=== PATIENT | male | born 1980 | race Caucasian/White ===

== ENCOUNTER 2017-05-27 20:29 | Outpatient (CLI) | payer OTHER | END 2017-05-27 20:30 | disposition critical access hospital (66) | LOC: EMS 20:29 | PROVIDERS: ATTEND Surgery | DX: R55 Syncope and collapse (principal); R11.2 Nausea with vomiting, unspecified | CPT/HCPCS: A0425; A0429 ==

== ENCOUNTER 2017-05-27 20:48 | Emergency (ER) | payer OTHER ==
[2017-05-27] MEDS ORDERED: SODIUM CHLORIDE 0.9% 1,000 ML IV ONE (21:07)
[2017-05-27 21:19] LABS: BASOPHILS % (AUTO) 0.1 %; EOSINOPHILS # (AUTO) 0.1 10^3/uL (0.0-0.7); EOSINOPHILS % (AUTO) 0.7 %; HCT - HEMATOCRIT 45.1 % (42.0-52.0); LYMPHOCYTES # (AUTO) 1.1 10^3/uL (1.5-3.5); LYMPHOCYTES % (AUTO) 12.1 %; MEAN CORPUSCULAR HEMOGLOBIN 28.9 pg (27.0-31.0); MEAN CORPUSCULAR HGB CONC 33.2 g/dL (32.0-36.0); MEAN CORPUSCULAR VOLUME 87.2 fL (80.0-94.0); MEAN PLATELET VOLUME 7.1 fL (7.4-11.4); MONOCYTES # (AUTO) 0.5 10^3/uL (0.0-1.0); MONOCYTES % (AUTO) 5.9 %; NEUTROPHILS # (AUTO) 7.2 10^3/uL (1.5-6.6); NEUTROPHILS % (AUTO) 81.2 %; RED BLOOD COUNT 5.17 10^6/uL (4.70-6.10); RED CELL DISTRIBUTION WIDTH 12.4 % (12.0-15.0); UNCORRECTED WHITE BLOOD COUNT 8.8 x10^3/uL; WHITE BLOOD COUNT 8.8 x10^3/uL (4.8-10.8)
--- NOTE | 2017-05-27 21:27 | ED Physician Documentation ---
History of Present Illness - Stated complaint Stated Complaint: SYNCOPE - Chief complaint Chief Complaint: Neuro - History obtained from History obtained from: Patient (pt arrived by EMS after it was reported that he passed out at home. pt staes that he was not feeling well and started to feel like he was going to throw up and when he went into the bathroom he was throwing up and he passed out. it was witnessed by family. family (at bedside state) that he was out for about 15 seconds and had shaking as he was waking up. no reports of hitting his head. he staes that the first thing he remembers is his family around him. did not urinate on himself and did not bite his mouth. ststes that he feels OK now. denied chest pain or shortenss of breath prior to the event.) Review of Systems Constitutional: denies: Fever, Chills Nose: denies: Rhinorrhea / runny nose, Sinus pressure / pain Throat: denies: Oral lesions / sores, Sore throat Cardiac: denies: Chest pain / pressure, Palpitations Respiratory: denies: Dyspnea, Cough, Hemoptysis, Wheezing GI: reports: Nausea, Vomiting. denies: Abdominal Pain, Constipation, Diarrhea : denies: Dysuria, Frequency Skin: denies: Rash, Lesions, Laceration (s) Musculoskeletal: denies: Neck pain, Back pain, Extremity pain Neurologic: reports: Syncope, LOC. denies: Generalized weakness, Focal weakness , Numbness, Seizure, Confused, Altered mental status, Headache, Head injury PD PAST MEDICAL HISTORY - Past Medical History Cardiovascular: Hypertension Neuro: Fainting - Past Surgical History Past Surgical History: Yes - Present Medications Home Medications: Ambulatory Orders Medication Instructions Recorded Confirmed No Known Home Medications [No 05/27/17 05/27/17 Known Home Medications] - Allergies Allergies/Adverse Reactions: Allergies Allergy/AdvReac Type Severity Reaction Status Date / Time No Known Drug Allergies Allergy Verified 05/27/17 20:52 - Social History Does the pt smoke?: No Smoking Status: Never smoker Does the pt drink ETOH?: Yes ETOH Use: Beer Does the pt have substance abuse?: No - Immunizations Immunizations are current?: Yes PD ED PE NORMAL - Vitals Vital signs reviewed: Yes - General General: Alert and oriented X 3, No acute distress, Well developed/nourished - HEENT HEENT: Atraumatic, PERRL, EOMI, Moist mucous membranes - Cardiac Cardiac: RRR, No murmur - Respiratory Respiratory: Clear bilaterally - Abdomen Abdomen: Soft, Non tender, Non distended - Derm Derm: Normal color, Warm and dry, No rash - Extremities Extremities: No deformity, No edema - Neuro Neuro: Alert and oriented X 3, 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 No: Prolonged QT QRS: Normal Ischemia: Normal ST segments - Labs Labs: Laboratory Tests 05/27/17 05/27/17 21:10 21:10 WBC 8.8 RBC 5.17 Hgb 15.0 Hct 45.1 MCV 87.2 MCH 28.9 MCHC 33.2 RDW 12.4 Plt Count 247 MPV 7.1 L Neut # 7.2 H Lymph # 1.1 L [place] # 0.5 Eos # 0.1 Baso # 0.0 Absolute Nucleated RBC 0.00 Nucleated RBC % 0.0 Sodium 139 Potassium 3.5 Chloride 99 L Carbon Dioxide 28 Anion Gap 12.0 BUN 20 Creatinine 1.1 Estimated GFR (MDRD) 76 L Glucose 94 Calcium 9.9 PD MEDICAL DECISION MAKING - ED course Complexity details: reviewed results, re-evaluated patient, considered differential, d/w patient ED course: ECG and labs unremarkable. Hx is not C/W a seizure. I suspect his syncope was vasovagal from his vomiting and not feeling well. Discussed this with the patient. gave him return precautions. [place] Departure - Departure Disposition: 01 Home, Self Care Clinical Impression: Syncope Condition: Good Instructions: ED Syncope Vasovagal Follow-Up: MAHESH LITTLE [Primary Care Provider] - Comments: make sure you are eating and drinking well. Follow up with your medical department in the next couple weeks. Return to the ER for any new symptoms, return of the symptoms, passing out that is associated with chest pain or palpitations or any other concerning symptoms.
[2017-05-27 21:29] LABS: CALCIUM 9.9 mg/dL (8.5-10.3); CREATININE 1.1 mg/dL (0.6-1.2); POTASSIUM 3.5 mmol/L (3.5-5.0)
[2017-05-27 21:45] VITALS: BP 146/85
== END 2017-05-27 22:10 | disposition home or self-care (01) ==
LOC: ED 20:48
DX: R55 Syncope and collapse (principal); R11.2 Nausea with vomiting, unspecified; I10 Essential (primary) hypertension
CPT/HCPCS: 36415; 80048; 85025; 93005; 96360; 99284

== ENCOUNTER 2018-01-01 11:11 | Emergency (ER) | payer OTHER ==
--- NOTE | 2018-01-01 12:15 | ED Physician Documentation ---
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 No other injuries. No persistent headache, vomiting, confusion, dizziness. ) Review of Systems Constitutional: reports: Reviewed and negative Throat: reports: Reviewed and negative Cardiac: reports: Reviewed and negative PD PAST MEDICAL HISTORY - Past Medical History Cardiovascular: Hypertension - Past Surgical History Past Surgical History: Yes - Present Medications Home Medications: Ambulatory Orders Medication Instructions Recorded Confirmed No Known Home Medications [No 05/27/17 05/27/17 Known Home Medications] - Allergies Allergies/Adverse Reactions: Allergies Allergy/AdvReac Type Severity Reaction Status Date / Time No Known Drug Allergies Allergy Verified 05/27/17 20:52 - Social History Does the pt smoke?: No Smoking Status: Never smoker Does the pt drink ETOH?: Yes Does the pt have substance abuse?: No - Immunizations Immunizations are current?: Yes PD ED PE NORMAL - Vitals Vital signs reviewed: Yes - General General: Alert and oriented X 3, No acute distress - HEENT HEENT: PERRL, EOMI - Neck Neck: Supple, no meningeal sign, No bony TTP - Neuro Neuro: Alert and oriented X 3, 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 The nexus criteria were applied. The patient has no focal neurologic deficit on examination. The patient has no midline spinal tenderness. The patient has a normal level of consciousness. The patient has no evidence of intoxication. There is no distracting injury presents. Given that these were all negative, per the Nexus criteria the cervical spine was cleared without imaging. - Sepsis Event Vital Signs: Vital Signs - 24 hr 01/01/18 11:16 Temperature 36.1 C L Heart Rate 66 Respiratory 16 Rate Blood Pressure 152/95 H O2 Saturation 97 Oxygen O2 Source Room air Departure - Departure Disposition: 01 Home, Self Care Clinical Impression: Injury of head and neck Qualifiers: Encounter type: initial encounter Qualified Code(s): S09.90XA - Unspecified injury of head, initial encounter; S19.9XXA - Unspecified injury of neck, initial encounter; S19.9XXA - Unspecified injury of neck, initial encounter Condition: Good Record reviewed to determine appropriate education?: Yes Instructions: ED Sprain Strain Neck Comments: Your blood pressure was elevated today on check into the emergency department. This does not mean that you have hypertension, it is a common phenomenon to come to the emergency department and have elevated blood pressure. I recommend that you see your primary care physician within the week to have it rechecked when you are feeling better.
[2018-01-01 12:19] VITALS: BP 140/80
== END 2018-01-01 12:17 | disposition home or self-care (01) ==
LOC: ED 11:11
DX: S09.90XA Unspecified injury of head, initial encounter (principal); S19.9XXA Unspecified injury of neck, initial encounter; W22.09XA Striking against other stationary object, initial encounter; Y99.1 Military activity; I10 Essential (primary) hypertension
CPT/HCPCS: 99283

== ENCOUNTER 2018-12-01 10:11 | Outpatient (CLI) | payer OTHER | END 2018-12-01 10:12 | disposition home or self-care (01) | LOC: SC 10:11 | PROVIDERS: ATTEND Internal Medicine Pulmonary Disease | DX: R06.83 Snoring (principal); R06.81 Apnea, not elsewhere classified; R51 Headache; R41.89 Other symptoms and signs involving cognitive functions and awareness; G47.8 Other sleep disorders; G47.10 Hypersomnia, unspecified | CPT/HCPCS: 99203; 99212 ==

== ENCOUNTER 2019-01-19 20:29 | Outpatient (CLI) | payer OTHER | END 2019-01-19 20:30 | disposition home or self-care (01) | LOC: SC 20:29 | PROVIDERS: ATTEND Internal Medicine Pulmonary Disease | DX: G47.33 Obstructive sleep apnea (adult) (pediatric) (principal); G47.61 Periodic limb movement disorder | CPT/HCPCS: 95810 ==

== ENCOUNTER 2019-01-22 20:46 | Outpatient (CLI) | payer OTHER | END 2019-01-22 20:47 | disposition home or self-care (01) | LOC: SC 20:46 | PROVIDERS: ATTEND Internal Medicine Pulmonary Disease | DX: G47.33 Obstructive sleep apnea (adult) (pediatric) (principal); G47.61 Periodic limb movement disorder | CPT/HCPCS: 95811 ==

== ENCOUNTER 2019-01-26 09:30 | Outpatient (CLI) | payer OTHER ==
--- NOTE | 2019-01-26 10:07 | SLEEP CARE CONSULTATION ---
Information from patient questionnaire entered by Sowmya Hernandez. I have reviewed and concur with the information entered by Sowmya Hernandez. This document represents the service I personally performed and the decisions made by me, Betito Nunez MD, [facility]. History of Present Illness Initial [place] Sleepiness Scale score: 9 Current [place] Sleepiness Scale score: 10 Additional HPI information: HPI: Mr. Carbone returned for follow up of the sleep studies (polysomnography and manual CPAP/BiPAP titration study) recently performed. The polysomnography showed that he patient had normal sleep efficiency. The sleep architecture was abnormal for sleep fragmentation and reduced amount of time spent in slow wave sleep (N3). Respiratory monitoring showed mild obstructive sleep apnea-hypopnea (AHI = 11.7) associated with frequent arousals, oxyhemoglobin desaturation and minimal hypoxia (flavia oxygen saturation of 89%). The patient slept almost exclusively in supine position (supine AHI = 13.0; non-supine = 0.00). Snore was loud in intensity. There was moderate periodic leg movement of sleep contributing to the sleep fragmentation. Cardiac rhythm was normal sinus rhythm without significant arrhythmia. No abnormal behavior (parasomnia) observed during the night. His manual CPAP/BiPAP titration study showed that CPAP was initiated at 4 cmH2O and titrated up to CPAP at 13 cmH2O. CPAP at 7 cmH2O appeared to be optimal (AHI of 0 per hour on the pressure). There was supine REM sleep on the pressure. Oxygen saturation was normal throughout the night.. Lower CPAP settings appeared adequate as well. The patient tolerated positive airway pressure therapy very well. The patients sleep efficiency was normal. The sleep architecture was normal as well. There was moderate periodic limb movement of sleep not contributing to the sleep fragmentation. Cardiac rhythm was normal sinus rhythm without significant arrhythmia. No abnormal behavior (parasomnia) observed during the night. The patient was informed of these findings. I explained to him the pathophysiology behind obstructive sleep apnea. We then spent quite a bit of time discussing different treatment options. For mild obstructive sleep apnea, surgery and oral appliance are alternatives to nasal CPAP therapy but in moderate or severe cases, nasal CPAP is the most effective and reliable treatment. Weight loss in an obese individual is strongly recommended. After s ome discussion, he opted to go with the nasal CPAP therapy. I explained to him how CPAP machine works and what to expect when using the machine. He is encouraged to use CPAP every night especially in the first 2 to 3 nights in order to get used to it. He should call his CPAP supplier or me to discuss any mechanical problem that may occur. If he snores or feels like he is not getting enough air from the machine, he should notify me and I will increase the pressure. Allergies and Home Medications Drug allergies reviewed: Yes Home medication list reviewed: Yes Review of Systems Review of systems same as previous: Yes Impression and Plan IMPRESSION: 1. Obstructive Sleep Apnea-Hypopnea Syndrome, mild, associated with minimal hypoxemia. Possibly, this is the cause of the patients symptoms of unrefreshed sleep, morning headache, and excessive daytime sleepiness. As mentioned above, the patient will be started on autoCPAP set between 5 and 11 cmH2O. I anticipate good treatment compliance. PLAN: 1. Prescription made for an autoCPAP, heated humidifier, and related supplies. 2. Attempt to lose weight and avoid alcohol consumption near bedtime. 3. 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 I spent 100% of this 15 minute visit face to face with the patient with greater than 50% of this was spent time counseling the patient and coordination of care.
== END 2019-01-26 09:31 | disposition home or self-care (01) ==
LOC: SC 09:30
PROVIDERS: ATTEND Internal Medicine Pulmonary Disease
DX: G47.33 Obstructive sleep apnea (adult) (pediatric) (principal)
CPT/HCPCS: 99212; 99213

== ENCOUNTER 2020-08-05 17:06 | Emergency (ER) | payer OTHER ==
[2020-08-05 17:16] VITALS: BP 147/81
--- NOTE | 2020-08-05 17:25 | ED Physician Documentation ---
PD HPI URI - Stated complaint Stated Complaint: SORE THROAT,POSSIBLE FEVER,NAUSEA - Chief complaint Chief Complaint: Heent - History obtained from History obtained from: Patient - Additional information Additional information: Otherwise healthy 40-year-old gentleman who is active duty in the [employer] has been sick for about 2 days with scratchy throat, temperature of 99, mild body aches, mild cough. Cough is nonproductive. 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 Review of Systems Constitutional: reports: Fever, Chills, Myalgias, Fatigue Nose: denies: Rhinorrhea / runny nose Throat: reports: Sore throat Respiratory: reports: Cough. denies: Dyspnea PD PAST MEDICAL HISTORY - Past Medical History Past Medical History: Yes Cardiovascular: Hypertension - Past Surgical History Past Surgical History: Yes - Present Medications Home Medications: Ambulatory Orders Medication Instructions Recorded Confirmed No Known Home Medications 05/27/17 08/05/20 - Allergies Allergies/Adverse Reactions: Allergies Allergy/AdvReac Type Severity Reaction Status Date / Time No Known Drug Allergies Allergy Verified 08/05/20 17:16 - Social History Does the pt smoke?: No Smoking Status: Never smoker Does the pt drink ETOH?: Yes Does the pt have substance abuse?: No - Immunizations Immunizations are current?: Yes PD ED PE NORMAL - Vitals Vital signs reviewed: Yes - General General: Alert and oriented X 3, No acute distress - Respiratory Respiratory: No respiratory distress - Derm Derm: Normal color, Warm and dry, No rash - Extremities Extremities: No edema, No calf tenderness / cord - Neuro Neuro: Alert and oriented X 3, Normal speech Results - Vitals Vitals: Vital Signs - 24 hr 08/05/20 17:10 Temperature 36.0 C L Heart Rate 87 Respiratory 20 Rate Blood Pressure 147/81 H O2 Saturation 97 Oxygen O2 Source Room air Departure - Departure Disposition: 01 Home, Self Care Clinical Impression: Viral syndrome Condition: Good Record reviewed to determine appropriate education?: Yes Instructions: ED Viral Syndrome Comments: You have a Covid test pending. You need to self quarantine until the result is done and negative. Do not leave your house. Do not get near anybody. The results should be done in 48 to 72 hours. We will call with a positive result, the fastest way to get a negative result for confirmation though is to go to the hospital website at [email or web address], click on the my [email or web address] tab and sign up for the patient portal. If any friends or family get sick and would like to have a Covid test done, but do not have signs or symptoms that would necessitate being hospitalized, we encourage testing through our coronavirus swabbing station, call [phone] to schedule an appointment. Forms: Activity restrictions
== END 2020-08-05 17:33 | disposition home or self-care (01) ==
LOC: ED 17:06
DX: B34.9 Viral infection, unspecified (principal); Z20.822 Contact with and (suspected) exposure to COVID-19; I10 Essential (primary) hypertension
CPT/HCPCS: 99283